=== PATIENT | female | born 1935 | race Caucasian/White ===

== ENCOUNTER 2016-08-21 05:50 | Day surgery (SDC) | payer OTHER, MEDICARE ==
[2016-08-16 09:48] LABS: HEMATOCRIT 40.2 % (36.0-48.0); HEMOGLOBIN 13.5 g/dL (12.0-16.0)
[2016-08-16 09:59] LABS: CHLORIDE, SERUM 103 MMOL/L (96-112); CO2 (CARBON DIOXIDE) 27 MMOL/L (24-34); CREATININE 1.15 MG/DL (0.55-1.02); GFR AFRICAN AMERICAN 51 ML/MIN (>=60); GFR NON AFRICAN AMERICAN 44 ML/MIN (>=60); GLUCOSE, SERUM 97 MG/DL (60-99); SODIUM, SERUM 139 MMOL/L (135-148)
[2016-08-16 10:00] LABS: BUN (BLOOD UREA NITROGEN) 23 MG/DL (6-23); POTASSIUM, SERUM 4.6 MMOL/L (3.5-5.3)
--- NOTE | ~2016-08-21 | OP ---
Record Of Operation [facility] [address] [place]. [address] NAME: JOSSUE PENA : 31 STATUS : [facility]#: [id number] AGE: 81 ADM/REG DATE : 08/21/16 MR#: [id number] REPORT SERV DATE: 08/21/16 DICTATED BY: ARNALDO GARCIA III DATE: 08/21/16 REPORT STATUS : Draft TRANSCRIBED BY: MODL DATE: 08/21/16 DATE OF PROCEDURE: 08/21/2016 PREOPERATIVE DIAGNOSIS: Overactive bladder. POSTOPERATIVE DIAGNOSIS: Grade 2 cystocele. PROCEDURES: Cystoscopy and hydrodistention. SURGEON: Arnaldo Garcia M.D. ANESTHESIA: General. SPECIMENS: None. DRAINS: None. INDICATION: Ms Pena is an 81-year-old, white female, who complains of urinary frequency and poor bladder control. She is given consent for cystoscopy and hydrodistention. PROCEDURE IN DETAIL: After consent was obtained and the patient identified, she was taken to the OR and put to sleep. She was positioned in the low lithotomy position and prepped and draped in usual fashion. A 22-Bulgarian cystoscope was made ready and inserted into the bladder using the obturator. Cystoscopy was then performed. The bladder did appear to be of small volume, but there were no tumors, stones, or foreign bodies noted. With irrigation, approximately 80 cm above the level of the bladder, hydrodistention was performed three times. The 1st volume was 470 mL and the next two were 615 mL. There were no urothelial changes after the hydrodistention. The bladder was then drained and the scope removed. The patient was awakened and taken to recovery in stable condition. PH/MODL Arnaldo Garcia III, M.D. / [id number] CC: Obie Ramsey III
[~2016-08-21 05:50] MED LIST: *UNABLE1; APRES10B PO; ASAB PO; CLONIDINE; LIBRAX PO; LISINOPRIL40 MG PO; ROBAXIN; SUCR PO; SYN.025B PO
== END 2016-08-21 11:49 | disposition home or self-care (01) ==
LOC: SDC 05:50
PROVIDERS: Urology
PROC: 0TJB8ZZ Inspection of Bladder, Via Natural or Artificial Opening Endoscopic (ICD-10-PCS; principal; 2016-08-21 07:45)
DX: N81.10 Cystocele, unspecified (principal); I10 Essential (primary) hypertension; I73.9 Peripheral vascular disease, unspecified; Z88.0 Allergy status to penicillin; Z88.5 Allergy status to narcotic agent; Z88.8 Allergy status to other drugs, medicaments and biological substances; Z79.82 Long term (current) use of aspirin; Z79.899 Other long term (current) drug therapy; Z98.890 Other specified postprocedural states; Z90.710 Acquired absence of both cervix and uterus
CPT/HCPCS: 80048; 85014; 85018; 93005; J2405; J3010